=== PATIENT | female | born 1985 | race American Indian/Alaskan Native ===

== ENCOUNTER 2017-04-19 11:43 | Inpatient (IN) | payer BC ==
[2017-04-19] MEDS ORDERED: BRETHINE IVP PRN (13:04)
[2017-04-19] MEDS ORDERED: XYLOCAINE 2% INFILTRATI ONE (13:04)
[2017-04-19] MEDS ORDERED: SUBLIMAZE IV PRN (13:04)
[2017-04-19] MEDS ORDERED: ePHEDrine SULFATE IV PRN (13:04)
[2017-04-19] MEDS ORDERED: STADOL IV PRN (13:04)
[2017-04-19] MEDS ORDERED: BRETHINE SUB-Q PRN (13:04)
[2017-04-19] MEDS ORDERED: MINERAL OIL PO PRN (13:04)
[2017-04-19] MEDS ORDERED: ZOFRAN IV PRN ×2 (13:04→19:44)
[2017-04-19 13:29] LABS: Hematocrit 38.2 % (30.3-42.9); Hemoglobin 12.7 gm/dl (10.1-14.3); Mean Corpuscular HGB Conc 33 % (30-34); Mean Corpuscular Hemoglobin 29 pg (28-32); Mean Corpuscular Volume 88 fl (79-97); Platelet Count 249 K/mm3 (140-440); Red Blood Count 4.34 M/mm3 (3.65-5.03); Red Cell Distribution Width 13.9 % (13.2-15.2); White Blood Count 9.3 K/mm3 (4.5-11.0)
[2017-04-19] MEDS ORDERED: PITOCin/NS 30 UNIT/500ML 30 UNITS/500 ML BAG IV SCH (14:00)
[2017-04-19] MEDS ORDERED: PITOCin/NS 20 UNIT/1000ML DRIP 20 UNITS/1,000 ML BAG IV SCH (14:00)
[2017-04-19] MEDS ORDERED: LACTATED RINGERS 1,000 ML IV SCH (14:00)
--- NOTE | 2017-04-19 17:51 | History and Physical Report ---
History of Present Illness Date of examination: 04/19/17 Date of admission: 04/19/17 13:45 Chief complaint: I'm in labor History of present illness: Patient is a 31 year old at 38.4weeks who presented to the office today with complaint of contractions. She was found to be 4.5 cm. She was sent to L&D for labor management. Her course has been uncomplicated Past History Past Medical History: no pertinent history Past Surgical History: [employer]/uterine surgery (laparoscopy from ectopic ) Social history: - Obstetrical History Expected Date of Delivery: 04/30/17 Actual Gestation: 38 Week(s) 3 Day(s) : 4 Para: 2 Number of Living Children: 2 Medications and Allergies Allergies Allergy/AdvReac Type Severity Reaction Status Date / Time No Known Allergies Allergy Unverified 04/19/17 11:44 Home Medications Medication Instructions Recorded Confirmed Last Taken Type Pnv No.95/Ferrous Fum/Folic AC 1 caplet PO 4XD 04/19/17 04/19/17 04/18/17 10:00 History [ Vitamins Tablet] Active Meds: Active Medications Butorphanol Tartrate (Stadol) 2 mg IV Q2H PRN PRN Reason: Pain , Severe (7-10) Fentanyl (Sublimaze) 100 mcg IV Q2H PRN PRN Reason: Labor Pain Lactated Ringer's (Lactated Ringers) 1,000 mls @ 125 mls/hr IV DIRECT PETER Oxytocin/Sodium Chloride (Pitocin/Ns 20 Unit/1000ml Drip) 20 units in 1,000 mls @ 125 mls/hr IV DIRECT PETER Oxytocin/Sodium Chloride (Pitocin/Ns 30 Unit/500ml) 30 units in 500 mls @ 1 mls /hr IV TITR PETER; 1 MILLIUNITS/MIN PRN Reason: Protocol Mineral Oil (Mineral Oil) 30 ml PO QHS PRN PRN Reason: Constipation Ondansetron HCl (Zofran) 4 mg IV Q8H PRN PRN Reason: Nausea And Vomiting Review of Systems All systems: negative Gastrointestinal: abdominal pain Genitourinary: contractions Rectal Exam: deferred - Vital Signs Vital signs: Vital Signs Pulse BP 96 H 130/70 04/19/17 12:07 04/19/17 12:07 Temp Pulse Resp BP Pulse Ox 98.3 F 104 H 16 130/81 88 04/19/17 14:06 04/19/17 17:44 04/19/17 14:06 04/19/17 17:44 04/19/17 16:28 - Physical Exam Cardiovascular: Regular rate, Normal S1, Normal S2 Lungs: Positive: Clear to auscultation, Normal air movement Abdomen: Positive: normal appearance, soft, normal bowel sounds Genitourinary (Female): Positive: normal external genitalia, normal perenium Vulva: both: normal - Obstetrical FHR: auscultation normal Cervical Dilatation: 6 Cervical Effacement Percentage: 70 station: -2 Uterine Contraction Pattern: Regular Uterine Tone Measurement Phase: Contraction Uterine Contraction Intensity: Moderate Results Result Diagrams: 04/19/17 12:55 All other labs normal. Assessment and Plan IUp at 38.3 weeks in active labor. Admit for management. Patient does not want epidural. Anticipate .
--- NOTE | 2017-04-19 18:05 | Procedure Note ---
OB Delivery Note - Delivery Date of Delivery: 04/19/17 Surgeon: JASMINA OROZCO Estimated blood loss: other (150) - Vaginal Delivery presentation: vertex Delivery position: OA Intrapartum events: none Delivery induction: none Delivery monitor: external FHT, external uterine Route of delivery: Indicators for instrumentation: nonreassuring FHR tracing Delivery placenta: spontaneous Delivery cord: 3 umbilical vessels Episiotomy: none Delivery laceration: none Anesthesia: none Delivery comments: Viable male delivered over intact perineum in precipitous manner with weight 6 pounds 8 ounces and Apgars 9,9. Placenta delivered spontaneously and intact with 3 vessel cord. No lacerations.Patient tolerated procedure well. - Infant A at 1 minute: 8 at 5 minutes: 9 Infant Gender: Male (6 pounds 11ounces)
[2017-04-19] MEDS ORDERED: NORCO 5/325 PO PRN (19:44)
[2017-04-19] MEDS ORDERED: TYLENOL PO PRN (19:44)
[2017-04-19] MEDS ORDERED: MILK OF MAGNESIA PO PRN (19:44)
[2017-04-19] MEDS ORDERED: TUCKS PAD TP PRN (19:44)
[2017-04-19] MEDS ORDERED: SODIUM CHLORIDE FLUSH SYRINGE 10 ML IV NR (19:44)
[2017-04-19] MEDS ORDERED: DULCOLAX PR PRN (19:44)
[2017-04-19] MEDS ORDERED: BENADRYL PO PRN (19:44)
[2017-04-19] MEDS ORDERED: PHENERGAN PO PRN (19:44)
[2017-04-19] MEDS ORDERED: LANSINOH TP PRN (19:44)
[2017-04-19] MEDS: COLACE PO SCH (21:55)
[2017-04-19] MEDS: MOTRIN PO SCH (23:27)
[2017-04-20] MEDS: MOTRIN PO SCH ×4 (01:44→21:03)
[2017-04-20 06:45] LABS: Hemoglobin 11.7 gm/dl (10.1-14.3)
[2017-04-20] MEDS ORDERED: PRENATAL VITAMIN PO SCH (10:00)
--- NOTE | 2017-04-20 12:36 | Progress Note ---
Subjective - Subjective Date of service: 04/20/17 Interval history: Patient is a 31 year old at 38.4weeks who presented to the office today with complaint of contractions. She was found to be 4.5 cm. She was sent to L&D for labor management. Her course has been uncomplicated Patient reports: appetite normal, voiding normally, pain well controlled, ambulating normally [place]: doing well Objective - Vital Signs Latest vital signs: Vital Signs Temp Pulse Resp BP BP Pulse Ox 04/20/17 08:11 98 F 74 18 116/69 04/20/17 04:00 98.6 F 65 18 102/76 04/20/17 00:00 98.6 F 77 16 101/81 04/19/17 20:00 98.6 F 77 16 121/75 04/19/17 18:28 91 H 121/69 04/19/17 17:59 92 H 117/63 04/19/17 17:44 104 H 130/81 04/19/17 16:28 99 H 88 04/19/17 16:24 89 98 04/19/17 16:22 85 89 04/19/17 16:19 90 98 04/19/17 16:14 92 H 98 04/19/17 16:09 88 98 04/19/17 16:04 89 98 04/19/17 15:59 91 H 98 04/19/17 15:54 93 H 98 04/19/17 15:53 98 H 94 04/19/17 15:49 97 H 95 04/19/17 15:46 93 H 86 04/19/17 15:44 95 H 98 04/19/17 15:39 89 98 04/19/17 15:34 94 H 98 04/19/17 15:29 84 98 04/19/17 15:24 96 H 97 04/19/17 15:19 94 H 98 04/19/17 15:14 83 99 04/19/17 15:09 101 H 98 04/19/17 15:04 95 H 97 04/19/17 14:59 86 98 04/19/17 14:54 85 98 04/19/17 14:49 86 98 04/19/17 14:44 80 99 04/19/17 14:39 94 H 99 04/19/17 14:34 85 98 04/19/17 14:29 84 97 04/19/17 14:24 87 98 04/19/17 14:19 86 98 04/19/17 14:14 84 99 04/19/17 14:11 83 121/74 04/19/17 14:09 93 H 98 04/19/17 14:06 98.3 F 80 16 121/74 99 04/19/17 14:04 94 H 99 04/19/17 13:59 94 H 99 04/19/17 13:54 96 H 99 04/19/17 13:49 88 99 04/19/17 13:44 91 H 98 04/19/17 12:53 89 123/71 04/19/17 12:38 84 143/80 Intake and Output 04/19/17 04/20/17 04/20/17 22:59 06:59 14:59 Intake Total 500 300 360 Output Total 700 250 500 Balance -200 50 -140 Intake: Oral 200 360 Intake, Free Water 300 300 Output: Urine 700 250 500 Void 700 250 500 Other: Total, Intake Amount 200 120 Total, Output Amount 700 250 500 # Voids Void 1 Estimated Blood Loss 150
[2017-04-20] MEDS: COLACE PO SCH ×2 (13:53→21:03)
[2017-04-20] MEDS ORDERED: BOOSTRIX IM ONE (18:11)
--- NOTE | 2017-04-21 09:49 | Discharge Summary ---
Providers - Providers Date of Admission: 04/19/17 13:45 Date of discharge: 04/21/17 Attending physician: JASMINA OROZCO Primary care physician: MERCHANDISE SUPERVISOR Hospitalization Reason for admission: active labor Delivery: Episiotomy: none Laceration: none complications: none Discharge diagnosis: IUP at term delivered [place] baby: male Hospital course: unremarkable Condition at discharge: Good Disposition: DC-01 TO HOME OR SELFCARE Plan - Provider Discharge Summary Activity: routine, no sex for 6 weeks, no heavy lifting 4 weeks, no strenuous exercise Diet: routine Instructions: routine Additional instructions: [] Smoking cessation referral if applicable(refer to patient education folder for contact #) [] Refer to [facility]'s [facility] Booklet Call your doctor immediately for: * Fever > 100.5 * Heavy vaginal bleeding ( >1 pad per hour) * Severe persistent headache * Shortness of breath * Reddened, hot, painful area to leg or breast * Drainage or odor from incision. * Keep incision clean and dry at all times and follow doctor's instructions regarding bathing/showering - Follow up plan Follow up: JASMINA OROZCO MD [Staff Physician] - 6 Weeks
[2017-04-21] MEDS: MOTRIN PO SCH (18:34)
[2017-04-21 19:10] VITALS: BP 122/69
== END 2017-04-21 19:00 | disposition home or self-care (01) | DRG 775 ==
LOC: TRG 11:43 → LD 13:45 → OB 19:42
PROVIDERS: ADMIT Obstetrics & Gynecology; ATTEND Obstetrics & Gynecology
PROC: 10E0XZZ Delivery of Products of Conception, External Approach (ICD-10-PCS; principal; 2017-04-19)
PROC: 3E0234Z Introduction of Serum, Toxoid and Vaccine into Muscle, Percutaneous Approach (ICD-10-PCS; 2017-04-19)
DX: O76 Abnormality in fetal heart rate and rhythm complicating labor and delivery (principal); Z3A.38 38 weeks gestation of pregnancy; Z37.0 Single live birth; Z23 Encounter for immunization; O62.3 Precipitate labor
CPT/HCPCS: 36415; 85014; 85018; 85027; 86592; 86850; 86900; 86901; 99211; A6250; G0463; J2590; J7120